=== PATIENT | female | born 1965 | race African-American/Black ===

== ENCOUNTER 2017-02-21 11:55 | Emergency (ER) | payer OTHER ==
[~2017-02-21] VITALS: Ht 165.1 cm; Wt 68.0 kg
--- NOTE | ~2017-02-21 | EKG ---
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
[~2017-02-21 11:55] MED LIST: AFEDITAB CR60 M1 PO; HYDROCHLOROTHIA25 M2 PO; LIDODERM 5%1 PATCH TOP; PERCOCET 10-321 EACH PO; PERCOCET 7.5-31 EACH PO; PRINIVIL20 MG PO; VALIUM5 MG PO
[2017-02-21 12:20] LABS: ABSOLUTE NEUTROPHILS 2.8 thou/uL (1.4-8.2); RBC 5.05 mil/uL (4.20-5.00); RDW 15.4 % (10.5-14.5)
[2017-02-21 12:22] LABS: BASOPHILS 0.8 % (0.0-2.0); EOSINOPHILS 0.6 % (0.0-3.0); HEMATOCRIT 42.3 % (37.0-47.0); HEMOGLOBIN 13.8 gm/dL (12.0-15.0); MCH 27.4 pg (26.0-34.0); MCHC 32.7 g/dL (28.0-37.0); MCV 83.8 fL (80.0-100.0); MONOCYTES 8.5 % (1.0-8.0); PLATELET COUNT 286 thou/uL (150-400); POLYS 54.1 % (36.0-66.0); WBC 5.1 thou/uL (4.0-11.0)
[2017-02-21 12:23] LABS: MANUAL DIFF NO
[2017-02-21] MEDS ORDERED: PROCARDIA10 MG PO (12:25)
[2017-02-21] MEDS ORDERED: HYDROCHLOROTHIA25 M2 PO (12:25)
[2017-02-21] MEDS ORDERED: LISINOPRIL10 MG PO (12:25)
[2017-02-21] MEDS ORDERED: NORVASC2.5 MG PO (12:26)
[2017-02-21] MEDS ORDERED: LOPRESSOR25 PO (12:26)
[2017-02-21] MEDS ORDERED: PERCOCET 10-321 EACH PO (12:27)
[2017-02-21] MEDS ORDERED: WELLBUTRIN 100100 MG PO (12:28)
[2017-02-21] MEDS ORDERED: LIORESAL 10 MG10 MG PO (12:28)
[2017-02-21] MEDS ORDERED: LIDODERM 5%1 PATC1 TRANSDERM (12:28)
[2017-02-21] MEDS ORDERED: GABAPENTIN 100100 MG PO (12:28)
[2017-02-21] MEDS ORDERED: FLEXERIL PO (12:29)
[2017-02-21 12:46] LABS: ANION GAP 10 mmol/L (7-16); BUN 18 mg/dL (7-18); CALCIUM 9.5 mg/dL (8.5-10.1); CHLORIDE 101 mmol/L (98-107); CO2 29 mmol/L (21-32); CREATININE 1.3 mg/dL (0.6-1.3); GLUCOSE 117 mg/dL (70-99); NT-PRO BRAIN NAT PEPTIDE 24 pg/mL (<300); POTASSIUM 4.1 mmol/L (3.5-5.1); SODIUM 140 mmol/L (136-145); TROPONIN-I < 0.04 ng/mL (<0.04-0.07)
[2017-02-21 14:58] VITALS: BP 123/80
== END 2017-02-21 14:59 | disposition home or self-care (01) ==
LOC: ER 11:55
PROVIDERS: Nurse Practitioner
DX: R07.89 Other chest pain (principal); G35 Multiple sclerosis; I10 Essential (primary) hypertension; K21.9 Gastro-esophageal reflux disease without esophagitis; G89.29 Other chronic pain; Z86.73 Personal history of transient ischemic attack (TIA), and cerebral infarction without residual deficits; F10.99 Alcohol use, unspecified with unspecified alcohol-induced disorder